=== PATIENT | female | born 1940 | race Caucasian/White ===

== ENCOUNTER 2016-10-26 06:53 | Day surgery (SDC) | payer MEDICARE, BC ==
[2016-10-26] MEDS ORDERED: Lactated Ringers 1,000 ML IV SCH (07:30)
[2016-10-26] MEDS ORDERED: ceFAZolin 1 GM in Premix Bag 1 BAG IV ONE (07:30)
[2016-10-26] MEDS ORDERED: Sodium Chloride 0.9% 10 ML Syringe FLUSH PRN ×2 (07:30)
[2016-10-26] MEDS ORDERED: Lidocaine 1% 30 ML SDV ONE (07:59)
[2016-10-26] MEDS ORDERED: Bupivacaine 0.5% 10 ML SDV ONE (07:59)
--- NOTE | 2016-10-26 08:23 | PCM.PREANE ---
Preanesthetic Assessment - Procedure Proposed Procedure: Arthroplasty of right small toe - Anesthesia/Transfusion/Family Hx Anesthesia History: Prior Anesthesia Without Reaction Other Type of Anesthesia Reaction Comment: occasional headache after anesthesia Family History of Anesthesia Reaction: No Transfusion History: Prior Transfusion Without Reaction Intubation History: Unknown - Review of Systems General: No Symptoms Pulmonary: No Symptoms Cardiovascular: No Symptoms Gastrointestinal: No symptoms Neurological: No Symptoms Other: Reports: None - Physical Assessment NPO Status Date: 10/25/16 NPO Status Time: 22:00 O2 Sat by Pulse Oximetry: 96 Respiratory Rate: 16 Vital Signs: Last Vital Signs Temp 97.9 F 10/26/16 07:07 Pulse 96 10/26/16 07:07 Resp 16 10/26/16 07:07 BP 146/94 H 10/26/16 07:07 Pulse Ox 96 10/26/16 07:07 Height: 1.73 m Weight: 85.139 kg ASA Class: 2 Mental Status: Alert & Oriented x3 Airway Class: Mallampati = 2 Dentition: Reports: Normal Dentition ROM/Head Extension: Full Lungs: Clear to auscultation, Normal respiratory effort Cardiovascular: Regular Rate, Regular Rhythm - Allergies Allergies/Adverse Reactions: Allergies Allergy/AdvReac Type Severity Reaction Status Date / Time meperidine HCl [From Demerol] AdvReac Nausea and Verified 10/26/16 07:10 Vomiting morphine AdvReac Nausea and Verified 10/26/16 07:10 Vomiting - Blood Blood Available: No Product(s) Available: None - Anesthesia Plan Pre-Op Medication Ordered: None - Acknowledgements Anesthesia Type Planned: MAC Pt an Appropriate Candidate for the Planned Anesthesia: Yes Alternatives and Risks of Anesthesia Discussed w Pt/Guardian: Yes Pt/Guardian Understands and Agrees with Anesthesia Plan: Yes PreAnesthesia Questionnaire HEENT History: Reports: None Cardiovascular History: Reports: None Respiratory History: Reports: None Gastrointestinal History: Reports: GERD Genitourinary History: Reports: None I O PSYCHOLOGIST History: Reports: None Musculoskeletal History: Reports: Arthritis Other Musculoskeletal History: polymyalgia rheumatica Neurological History: Reports: None Psychiatric History: Reports: Depression Endocrine/Metabolic History: Reports: None Hematologic History: Reports: Anemia Immunologic History: Reports: None Oncologic (Cancer) History: Reports: Breast Dermatologic History: Reports: None - Infectious Disease History Infectious Disease History: Reports: Chicken Pox, Measles, Shingles - Past Surgical History Head Surgeries/Procedures: Reports: None HEENT Surgical History: Reports: Cataract Surgery Cardiovascular Surgical History: Reports: None GI Surgical History: Reports: None Female Surgical History: Reports: Mastectomy Musculoskeletal Surgical History: Reports: Other (See Below) Other Musculoskeletal Surgeries/Procedures:: ankle fusion. numerous surg on both feet - SUBSTANCE USE Smoking Status *Q: Former Smoker Second Hand Smoke Exposure: No Days Per Week of Alcohol Use: 7 Number of Drinks Per Day: 1 Total Drinks Per Week: 7 Recreational Drug Use History: No - HOME MEDS Home Medications: Home Meds Calcium Carbonate [Calcium] 2 tab PO DAILY 06/12/13 [History] FLUoxetine [PROzac] 20 mg PO DAILY 06/12/13 [History] Fish Oil/[place]-3 Fatty Acids [Fish Oil] 1 each PO DAILY 06/12/13 [History] Gabapentin [Neurontin] 900 mg PO TID 06/12/13 [History] Gluc 2KCl/Chondr/Kayleigh Hy/Hy Ac [Glucosamine & Chondroitin Cap] 1,500 mg PO TID 06/12/13 [History] Levothyroxine [Synthroid] 88 mcg PO ACBRK 06/12/13 [History] Loratadine [Claritin] 10 mg PO DAILY 06/12/13 [History] Methylsulfonylmethane [MSM] 1,500 mg PO BID 06/12/13 [History] Multivitamin [Multi-Vitamin Daily] 1 each PO DAILY 06/12/13 [History] Simvastatin [Zocor] 20 mg PO BEDTIME 06/12/13 [History] Acyclovir [Zovirax 5% Crm] 1 applic TOP DAILY PRN 09/28/14 [History] Azelastine HCl [Azelastine] 1 drop EYEBOTH BID 09/28/14 [History] Hydrocodone/Acetaminophen [[place] 5-325] 5 mg PO Q6HR PRN 09/28/14 [History] Losartan/Hydrochlorothiazide [Losartan-HCTZ 100-25 MG] 1 tab PO DAILY 09/28/14 [ History] cycloSPORINE [Restasis] 1 drop EYEBOTH BID 09/28/14 [History] Pantoprazole [Protonix] 40 mg PO ACBREAKFAST #30 tab.cr 10/01/14 [Rx] Biotin 1 tab PO DAILY 10/25/16 [History] Clotrimazole/Betamethasone Dip [Lotrisone Cream] 1 applic TOP ASDIRECTED PRN [History] Denosumab [Prolia] 60 mg INJECT .Q6MON 10/25/16 [History] - CURRENT (IN HOUSE) MEDS Current Meds: Current Medications Lactated Ringer's (Ringers, Lactated) 1,000 mls @ 100 mls/hr IV ASDIRECTED JANAE Last Admin: 10/26/16 07:45 Dose: 100 mls/hr Sodium Chloride (Saline Flush) 10 ml FLUSH ASDIRECTED PRN PRN Reason: Keep Vein Open Sodium Chloride (Saline Flush) 10 ml FLUSH ASDIRECTED PRN PRN Reason: Keep Vein Open Discontinued Medications Bupivacaine HCl (Sensorcaine-Mpf 0.5%) Confirm Administered Dose 20 ml .ROUTE .STK-MED ONE Stop: 10/26/16 08:00 Cefazolin Sodium/Dextrose 1 gm (/ Premix) 50 mls @ 100 mls/hr IV ONETIME ONE Stop: 10/26/16 07:59 Lidocaine HCl (Xylocaine-Mpf 1%) Confirm Administered Dose 30 ml .ROUTE .STK- MED ONE Stop: 10/26/16 08:00
[2016-10-26] MEDS ORDERED: Ondansetron 4 MG/2 ML SDV ONE (08:25)
[2016-10-26] MEDS ORDERED: fentaNYL 100 MCG/2 ML SDV ONE (08:25)
[2016-10-26] MEDS ORDERED: Propofol 200 MG/20 ML SDV ONE (08:26)
[2016-10-26] MEDS ORDERED: Lidocaine 2% 20 ML MDV ONE (08:26)
[2016-10-26] MEDS ORDERED: Famotidine 20 MG/2 ML SDV ONE (08:26)
[2016-10-26] MEDS ORDERED: Midazolam 1 MG/ML 2 ML SDV ONE (08:27)
[2016-10-26] MEDS ORDERED: Bupivacaine 0.5% 10 ML SDV INJECT ONE ×3 (08:42→10:25)
[2016-10-26] MEDS ORDERED: Lidocaine 1% 30 ML SDV INJECT ONE ×3 (08:42→10:25)
[2016-10-26] MEDS ORDERED: Acetaminophen/oxyCODONE 325-5 MG Tab PO PRN (09:22)
--- NOTE | 2016-10-26 09:25 | PCM.OPNOTE ---
- General Post-Op/Procedure Note Date of Surgery/Procedure: 10/26/16 Operative Procedure(s): right foot 5th digit derotational arthroplasty, 4th digit PIPJ shaving Pre Op Diagnosis: right foot painful hammertoe 5th digit with heloma molle 4/5 digits Post-Op Diagnosis: nadia Anesthesia Technique: Local, MAC Primary Surgeon: Janett Vaughn Anesthesia Provider: Monika Mccormack EBL in mLs: 5 Complications: none Condition: Good Free Text/Narrative:: Pt tolerated procedure well and was transported to pacu with vss and vascular status intact to right foot and digits. Well padded dressing with nithin wrap placed. TT 18 mins.
--- NOTE | 2016-10-26 09:44 | PCM.POSTAN ---
POST ANESTHESIA ASSESSMENT - MENTAL STATUS Mental Status: alert, oriented - VITAL SIGNS Pulse Rate: 75 SaO2: 95 Resp Rate: 18 Blood Pressure: 120/72 Temperature: 97.2 F - RESPIRATORY Respiratory Status: respiratory rate WNL, airway patent, O2 saturation stable - CARDIOVASCULAR CV Status: pulse rate WNL, blood pressure stable - GASTROINTESTINAL GI Status: no symptoms - PAIN Pain Score: 0 - POST OP HYDRATION Hydration Status: adequate & stable - OBSERVATIONS Free Text/Narrative:: Tolerated food and fluid well. Pain free no nausea. Ready to discharge home.
--- NOTE | 2016-10-26 10:20 | OR ---
DATE: 10/26/2016 PREOPERATIVE DIAGNOSES: 1. Right foot painful hammertoe of the 5th digit with corn. 2. Right foot 4th digit painful corn in the interdigital area with bone spur. POSTOPERATIVE DIAGNOSES: 1. Right foot painful hammertoe of the 5th digit with corn. 2. Right foot 4th digit painful corn in the interdigital area with bone spur. PROCEDURE PERFORMED: 1. Right foot 5th digit derotational arthroplasty. 2. Right foot 4th digit shaving of the proximal interphalangeal joint of the 4th digit. ANESTHESIA: Local MAC with preoperative local block of 10 mL 1:1 mixture of 1% lidocaine plain and 0.5% Marcaine plain. ESTIMATED BLOOD LOSS: Minimal. SPECIMEN: None. COMPLICATIONS: None. INDICATIONS: Willa is a 76-year-old female, who I have been seeing for quite a while for painful nails and also painful corn on her right 5th and 4th digits. She states that she has had to deal with this painful corn for a few years now, she has history of multiple hammertoe procedures on that foot and even had to have something done. She reports that she has tried trimming these corns herself and shaving them down with no relief. She also soaked her feet. I have been trimming down the corns for many months now and they do grow back very quickly. They are very painful when she wears shoes or any pressure to the area. She has also tried a toe spacer between the 4th and 5th toes with no relief. The patient voiced good understanding of proposed procedure and possible complications and elects to have surgery at this time. DESCRIPTION OF THE PROCEDURE: The patient was taken to the operating room, lying in supine position. After adequate anesthesia induction as described above, the right foot was prepped and draped in usual sterile fashion. A pneumatic ankle tourniquet was inflated to 225 mmHg. Attention was then directed to the dorsal aspect of the interphalangeal joint of the right 5th toe where an angulated elliptical incision was made. The dorsal skin and subcutaneous tissue was removed. A tenotomy capsulotomy was performed at the proximal interphalangeal joint and the head of the proximal phalanx was freed from the soft tissue and exposed. A bone cutter was then used to remove a good portion of the head of the proximal phalanx. A bone rasp was then used to rasp any rough edges. The area was then irrigated with copious amounts of sterile saline. Capsular and tendon closure was completed with 3-0 Vicryl, and the toe was sutured closed in a way that it straightened that 5th digit. Skin closure was completed with 4-0 nylon. Attention was then directed to the dorsal aspect of the 4th digit of the right foot where a small linear incision was made centered over the interphalangeal joint of the 4th digit. Sharp and blunt dissection was made down just to the medial aspect of that joint, there has been a surgery on this in the past, so the cartilage was not intact. There was noted to be bone spurring on the lateral aspect of the 4th proximal interphalangeal joint area and this was smoothed down with a bone rasp. The area was then inspected and no further bony prominences were identified. The area was then irrigated with copious amounts of sterile saline. Capsular closure was completed with 3-0 Vicryl, and skin closure was completed with 4-0 nylon. The area was dressed with Xeroform to the incision site, fluffs, Webril, and an Bud wrap. She was placed in a postoperative shoe. She tolerated the procedure and anesthesia well and left the operating room for recovery with vital signs stable and vascular status intact to the digits as noted by immediate hyperemia to all digits upon deflation of ankle tourniquet. The patient was then discharged home when she met hospital discharge requirements. [facility] /[id number]
[2016-10-26 11:49] VITALS: BP 136/69
[2016-10-26] MEDS ORDERED: Ondansetron 4 MG/2 ML SDV IV ONE (14:44)
[2016-10-26] MEDS ORDERED: Famotidine 20 MG/2 ML SDV IV ONE (14:44)
[2016-10-26] MEDS ORDERED: Propofol 200 MG/20 ML SDV IV ONE (14:44)
[2016-10-26] MEDS ORDERED: Lidocaine 2% 20 ML MDV INJECT ONE (14:44)
[2016-10-26] MEDS ORDERED: fentaNYL 100 MCG/2 ML SDV IV ONE (14:44)
[2016-10-26] MEDS ORDERED: Midazolam 1 MG/ML 2 ML SDV IV ONE (14:44)
== END 2016-10-26 11:10 | disposition home or self-care (01) ==
LOC: DL.SDS 06:53
PROVIDERS: ATTEND Podiatrist
DX: M20.41 Other hammer toe(s) (acquired), right foot (principal); L84 Corns and callosities; M77.51 Other enthesopathy of right foot and ankle; D64.9 Anemia, unspecified; F32.9 Major depressive disorder, single episode, unspecified; E78.5 Hyperlipidemia, unspecified; I10 Essential (primary) hypertension; E03.9 Hypothyroidism, unspecified; Z88.8 Allergy status to other drugs, medicaments and biological substances; Z79.899 Other long term (current) drug therapy; Z98.890 Other specified postprocedural states; Z98.51 Tubal ligation status
CPT/HCPCS: 01470; 28124; 28285; J0690; J2250; J2405; J2704; J3010; J7120; S0028